=== PATIENT | female | born 1945 ===

== ENCOUNTER 2023-11-25 05:00 | Day surgery (SDC) | payer OTHER ==
[~2023-11-25 05:00] MED LIST: LOSARTAN POTAS100 MG; SYNTHROID50 MCG; TENORMIN100 M1
[2023-11-25] MEDS ORDERED: VANCOMYCIN HCL 1,000 MG VIAL IR ONE (10:45)
[2023-11-25] MEDS ORDERED: CEFAZOLIN SODIUM 1,000 MG VIAL IV SCH (10:45)
[2023-11-25] MEDS ORDERED: CHLORHEXIDINE GLUCONATE 120 ML BOTTLE TOP ONE (10:45)
[2023-11-25] MEDS ORDERED: MACROBID 100 M100 MG PO (12:10)
[2023-11-25] MEDS ORDERED: TRAM1TAB98 PO (12:11)
== END 2023-11-25 16:00 | disposition home or self-care (01) ==
LOC: CIR.AMB 05:00
PROVIDERS: ATTEND Obstetrics & Gynecology Gynecology
DX: N81.5 Vaginal enterocele (principal); N81.11 Cystocele, midline; N81.6 Rectocele; I10 Essential (primary) hypertension; R00.1 Bradycardia, unspecified; E03.9 Hypothyroidism, unspecified; N39.0 Urinary tract infection, site not specified